=== PATIENT | male | born 2005 | race Caucasian/White ===

== ENCOUNTER 2024-03-07 16:20 | Emergency (ER) | payer OTHER ==
[~2024-03-07] VITALS: Ht 177.8 cm; Wt 90.0 kg
[2024-03-07 16:45] VITALS: TEMP 98.2; O2SAT 100
[2024-03-07 18:07] VITALS: BP 140/96; PULSE 61; RESP 20
[2024-03-07] MEDS: METOCLOPRAMIDE HCL 10MG/2ML VIAL IV STA (18:07)
[2024-03-07] MEDS: KETOROLAC 30MG/ML VIAL IV STA (18:07)
[2024-03-07 18:30] LABS: CLARITY URINE CLEAR (CLEAR); COLOR URINE DARK YELLOW (YELLOW); GLUCOSE URINE NEGATIVE (NEGATIVE); KETONES URINE 1+ (NEGATIVE); LEUKOCYTE ESTERASE URINE TRACE (NEGATIVE); NITRITE URINE NEGATIVE (NEGATIVE); OCCULT BLOOD URINE NEGATIVE (NEGATIVE); PROTEIN URINE TRACE (NEGATIVE); SPECIFIC GRAVITY URINE 1.033 (1.005-1.030)
[2024-03-07 18:38] LABS: *AMPHETAMINES SCREEN URINE NEGATIVE (NEGATIVE); *BARBITURATES SCREEN URINE NEGATIVE (NEGATIVE); *BENZODIAZEPINES SCREEN URINE NEGATIVE (NEGATIVE); CANNABINOID URINE SCREEN PRESUMPTIVE POSITIVE (NEGATIVE); ECSTASY MDMA SCREEN URINE NEGATIVE (NEGATIVE); METHADONE URINE SCREEN NEGATIVE (NEGATIVE); OPIATES URINE SCREEN NEGATIVE (NEGATIVE); PHENCYCLIDINE URINE SCREEN NEGATIVE (NEGATIVE)
[2024-03-07 18:39] LABS: *COCAINE SCREEN URINE NEGATIVE (NEGATIVE)
[2024-03-07 18:54] LABS: BACTERIA URINE TRACE; RBC URINE 0-2 /hpf (0-2); SQUAMOUS EPITHELIAL CELL URINE FEW /lpf (RARE/1+)
[2024-03-07 19:06] LABS: BASOPHILS % 0.3 % (0.0-2.0); EOSINOPHILS % 0.3 % (0.0-5.0); HEMATOCRIT. 48.8 % (42.0-52.0); HEMOGLOBIN. 16.8 g/dL (14.0-18.0); LYMPHOCYTES % 19.8 % (20.0-50.0); MEAN CORPUSCULAR HEMOGLOBIN 28.9 pg (28.0-32.0); MEAN CORPUSCULAR HGB CONC 34.5 g/dL (31.0-37.0); MEAN CORPUSCULAR VOLUME 83.8 fL (80.0-94.0); MEAN PLATELET VOLUME 9.2 fl (7.4-10.4); MONOCYTES % 3.8 % (2.0-8.0); NEUTROPHILS % 75.8 % (40.0-76.0); PLATELET 280 x1000/uL (130-400); RED BLOOD CELL COUNT 5.83 mill/uL (4.7-6.1); RED CELL DISTRIBUTION WIDTH 13.3 % (11.6-14.6)
[2024-03-07] MEDS: SODIUM CHLORIDE 0.9% 1,000 ML IV ONE (19:07)
[2024-03-07 19:11] LABS: CARBON DIOXIDE 30 mEq/L (21-32); CHLORIDE 103 mEq/L (98-107); POTASSIUM 4.1 mEq/L (3.5-5.1); SODIUM 139 mEq/L (136-145)
[2024-03-07 19:12] LABS: CALCIUM 10.5 mg/dL (8.7-10.4)
[2024-03-07 19:16] LABS: CREATININE 0.8 mg/dL (0.6-1.3)
[2024-03-07 19:17] LABS: GLUCOSE 93 mg/dL (70-105); UREA NITROGEN BLOOD 9 mg/dL (9-23)
[2024-03-07 19:18] LABS: ALANINE AMINOTRANSFERASE 40 IU/L (10-49); ALBUMIN 5.8 g/dL (3.2-4.8); ASPARTATE AMINOTRANSFERASE 30 IU/L (<34)
[2024-03-07 19:19] LABS: BILIRUBIN DIRECT 0.2 mg/dL (<=3.0); BILIRUBIN TOTAL 0.6 mg/dL (0.1-1.0); PROTEIN TOTAL 8.5 g/dL (6.0-8.3)
[2024-03-07 19:21] LABS: ETHANOL BLOOD < 10 mg/dL (<10)
[2024-03-07] MEDS ORDERED: MECLIZINE 25MG TABLET PO ONE (19:30)
[2024-03-07] MEDS: MECLIZINE 12.5MG TABLET PO NR (19:45)
[2024-03-07] MEDS ORDERED: MECL-299 MT (20:20)
[2024-03-07] MEDS ORDERED: NAPR-681 PO (20:20)
[2024-03-07] MEDS ORDERED: KETOROLAC 30MG/ML VIAL IM STA (20:42)
[2024-03-07] MEDS ORDERED: ACETAMINOPHEN WITH CODEINE 300/30MG TABLET PO STA (20:42)
[2024-03-07] MEDS ORDERED: AMOXICILLIN/POTASSIUM CLAVULANATE 875/125MG TAB PO ONE (20:45)
== END 2024-03-07 21:24 | disposition home or self-care (01) ==
LOC: ER 16:20
DX: R42 Dizziness and giddiness (principal); R51.9 Headache, unspecified
CPT/HCPCS: 80076; 80305; 80048; 81003; 80320; 83690; 85025; 36415; 96361; 96374; 96375; 99284; J8597; J1885; J2765; J7030; G0480